=== PATIENT | male | born 1965 | race African-American/Black ===

== ENCOUNTER 2017-11-15 12:59 | Emergency (ER) | payer OTHER ==
[~2017-11-15] VITALS: Ht 175.3 cm; Wt 68.0 kg
[2017-11-15] MEDS ORDERED: HYDROCODONE/APAP 5MG-325MG TAB PO ONE (13:45)
== END 2017-11-15 13:55 | disposition home or self-care (01) ==
LOC: FSED 12:59
DX: G44.209 Tension-type headache, unspecified, not intractable (principal); F17.290 Nicotine dependence, other tobacco product, uncomplicated
CPT/HCPCS: 70450; 80053; 85025; 99284

== ENCOUNTER 2019-06-02 21:21 | Emergency (ER) | payer OTHER ==
[~2019-06-02] VITALS: Ht 175.3 cm; Wt 68.0 kg
--- NOTE | 2019-06-02 22:11 | Diagnostic Imaging Report ---
History: Trauma Comparison studies: None Technique: Axial images were obtained from the skull base to the vertex. Coronal and sagittal reconstructions obtained from the axial data. Dose modulation, iterative reconstruction, and/or weight based adjustment of the mA/kV was utilized to reduce the radiation dose to as low as reasonably achievable. Intravenous contrast: None Findings: Scalp/skull: No abnormalities. No fractures, blastic or lytic lesions. Extra-axial spaces: No masses. No fluid collections. Brain sulci: Appropriate for age. Ventricles: Normal in size and configuration. No hydrocephalus. Parenchyma: No abnormal densities. No masses, hemorrhage, acute or chronic cortical vascular insults. Sellar/suprasellar region: No abnormalities Craniocervical junction: Patent foramen magnum. No Chiari one malformation. Incidental findings: None. IMPRESSION: No abnormalities. Signed by: Dr. Wil Yen M.D. on 06/02/2019 10:08 PM
--- NOTE | 2019-06-02 22:43 | Diagnostic Imaging Report ---
History:Trauma, pain in the left maxilla and tooth Comparison studies: None Technique: Axial images were obtained through the maxillofacial region. Coronal and sagittal images reconstructed from the axial data. Dose modulation, iterative reconstruction, and/or weight based adjustment of the mA/kV was utilized to reduce the radiation dose to as low as reasonably achievable. Intravenous contrast: None Findings: Teeth: The left central maxillary incisor (tooth #9) is anteriorly displaced into the overlying premaxillary soft tissues (series 108, image 17, series 103, image 25). No fractures in the underlying maxilla. A periapical lucency involvement of the root of the right second mandibular molar (series 103, image 17). Multiple maxillary and mandibular molars are missing. A focal defect in the buccal cortex is contiguous with the empty socket of the left first mandibular molar (series 103, image 16). Soft tissues: Focal swelling in the left premaxillary soft tissues is adjacent and posterior to the displaced left central maxillary incisor described above. Otherwise, no additional abnormalities. Bones: No fractures or bone abnormalities. Orbits: Globes: Intact Extra or intraconal abnormalities: None. Paranasal sinuses: Focal mucosal thickening along the floor of the left maxillary sinus. Otherwise, the sinuses are clear. IMPRESSION: 1. Focal left premaxillary soft tissue swelling (series 2, images 16 through 19) is associated with focal anterior displacement of the left central maxillary incisor series 109, image 16 and series 103, image 25). 2. No fractures in the underlying maxilla. 3. No additional significant abnormalities Signed by: Dr. Wil Yen M.D. on 06/02/2019 10:39 PM
[2019-06-02] MEDS ORDERED: HYDROCODONE/APAP 5MG-325MG TAB PO ONE (22:45)
[2019-06-02] MEDS ORDERED: HYDROCODONE/APAP 5MG-325MG TAB ONE (22:56)
== END 2019-06-02 23:03 | disposition home or self-care (01) ==
LOC: FSED 21:21
DX: S09.90XA Unspecified injury of head, initial encounter (principal); W22.8XXA Striking against or struck by other objects, initial encounter; Y93.9 Activity, unspecified; Y92.89 Other specified places as the place of occurrence of the external cause; Y99.0 Civilian activity done for income or pay
CPT/HCPCS: 70450; 70486; 99283

== ENCOUNTER 2019-06-10 14:37 | Emergency (ER) | payer OTHER ==
[~2019-06-10] VITALS: Ht 175.3 cm; Wt 68.0 kg
--- OUTSIDE RECORDS SUMMARY | 2019-06-10 14:40 | XMS REPORT ---
Author Author [facility] Address Unknown Phone Unavailable Care Team Providers Care Parking Meter Collector Name Role Phone MINGO ADAMSON Unavailable Unavailable Problems This patient has no known problems. Allergies, Adverse Reactions, Alerts This patient has no known allergies or adverse reactions. Medications This patient has no known medications. Results Test Description Test Time Test Comments Text Results Atomic Results Result Comments CT MAX/FACPARANASA SIN WO-HOPD 2019-06-02 22:26:00 [place] [address] Patient Name: KEITH CELIS MR #: [id number] : 1965 Age/Sex: 53/M Req #: [id number] [facility] Physician: Ordered by: MINGO ADAMSON MD Report #: [id number] Location: [facility] Room/Bed: Procedure: [id number] HOPD/CT MAX/FACPARANASA SIN WO-HOPD Exam Date: 06/02/19 Exam Time: 2150 REPORT STATUS: Signed History:Trauma, pain in the left maxilla and tooth Comparison studies: None Technique: Axial images were obtained through the maxillofacial region. Coronal and sagittal images reconstructed from the axial data. Dose modulation, iterative reconstruction, and/or weight based adjustment of the mA/kV was utilized to reduce the radiation dose to as low as reasonably achievable. Intravenous contrast: None Findings: Teeth: The left central maxillary incisor (tooth #9) is anteriorly displaced into the overlying premaxillary soft tissues (series 108, image 17, series 103, image 25). No fractures in the underlying maxilla. A periapical lucency involvement of the root of the right second mandibular molar (series 103, image 17). Multiple maxillary and mandibular molars are missing. A focal defect in the buccal cortex is contiguous with the empty socket of the left first mandibular molar (series 103, image 16). Soft tissues: Focal swelling in the left premaxillary soft tissues is adjacent and posterior to the displaced left central maxillary incisor described above. Otherwise, no additional abnormalities. Bones: No fractures or bone abnormalities. Orbits: Globes: Intact Extra or intraconal abnormalities: None. Paranasal sinuses: Focal mucosal thickening along the floor of the left maxillary sinus. Otherwise, the sinuses are clear. IMPRESSION: 1. Focal left premaxillary soft tissue swelling (series 2, images 16 through 19) is associated with focal anterior displacement of the left central maxillary incisor series 109, image 16 and series 103, image 25). 2. No fractures in the underlying maxilla. 3. No additional significant abnormalities Signed by: Dr. Wil Yen M.D. on 06/02/2019 10:39 PM Dictated By: WIL YEN MD, MD 38 Transcribed By: JOSE MARTIN on 06/02/192238 COPY TO: MINGO ADAMSON MD CT BRAIN [facility] 2019-06-02 22:07:00 [place] [address] Patient Name: KEITH CELIS MR #: [id number] : 1965 Age/Sex: 53/M Req #: [id number] Adm Physician: Ordered by: MINGO ADAMSON MD Report #: [id number] Location: [facility] Room/Bed: Procedure: [id number] HOPD/CT BRAIN WO-HOPD Exam Date: Exam Time: REPORT STATUS: Signed History: Trauma Comparison studies: None Technique: Axial images were obtained from the skull base to the vertex. Coronal and sagittal reconstructions obtained from the axial data. Dose modulation, iterative reconstruction, and/or weight based adjustment of the mA/kV was utilized to reduce the radiation dose to as low as reasonably achievable. Intravenous contrast: None Findings: Scalp/skull: No abnormalities. No fractures, blastic or lytic lesions. Extra-axial spaces: No masses. No fluid collections. Brain sulci: Appropriate for age. Ventricles: Normal in size and configuration. No hydrocephalus. Parenchyma: No abnormal densities. No masses, hemorrhage, acute or chronic cortical vascular insults. Sellar/suprasellar region: No abnormalities Craniocervical junction: Patent foramen magnum. No Chiari one malformation. Incidental findings: None. IMPRESSION: No abnormalities. Signed by: Dr. Wil Yen M.D. on 06/02/2019 10:08 PM Dictated By: WIL YEN MD, MD 07 Transcribed By: JOSE MARTIN on 06/02/192207 COPY TO: MINGO ADAMSON MD
[2019-06-10] MEDS ORDERED: HYDROCODONE/APAP 10MG-325MG TAB PO ONE (15:00)
[2019-06-10] MEDS ORDERED: KETOROLAC TROMETHAMINE 60 MG/2 ML VIAL IM ONE (15:00)
== END 2019-06-10 16:00 | disposition home or self-care (01) ==
LOC: ER 14:37
DX: K08.89 Other specified disorders of teeth and supporting structures (principal); R51 Headache; W20.8XXA Other cause of strike by thrown, projected or falling object, initial encounter; Y99.0 Civilian activity done for income or pay
CPT/HCPCS: 99283; J1885